=== PATIENT | female | born 2000 | race Caucasian/White ===

== ENCOUNTER 2024-01-21 09:49 | Emergency (ER) | payer SELFPAY ==
[2024-01-21 09:57] VITALS: BP 133/80; PULSE 98; RESP 15; TEMP 37.1; O2SAT 100; BMI 25.0
--- NOTE | 2024-01-21 10:00 | PC.NURSE ---
1015:Called pt to put in room and pt was not in lobby. Registration staff states pt left.
== END 2024-01-21 10:29 | disposition left against medical advice (07) ==
PROVIDERS: Emergency Provider Emergency Medicine
CPT/HCPCS: 99281